=== PATIENT | male | born 1975 | race Caucasian/White ===

== ENCOUNTER → 2019-01-27 | Outpatient (CLI) | payer OTHER ==
[~2019-01-27] MED LIST: GABAPENTIN100 M2 PO; GOOD SENSE400 MG/5 M PO; HEPARIN 2525000 UNIT IV; MOTRIN800 MG PO; ONDANSETRON4 MG/2 M3 IV; OXYCODONE HCL5 MG PO; TOPROL XL50 M1 PO
[2019-01-27 09:36] LABS: HEMATOCRIT 38.9 % (42.0-52.0); HEMOGLOBIN 13.1 g/dl (14.0-18.0); MEAN CELL VOLUME 83.8 fl (80.0-94.0); MEAN CORPUSCULAR HGB 28.2 pg (27.0-31.0); MEAN CORPUSCULAR HGB CONC 33.7 g/dl (33.0-37.0); MEAN PLATELET VOLUME 10.2 fl (9.6-12.3); RED BLOOD COUNT 4.64 10*6/uL (4.50-5.90); RED CELL DISTRI WIDTH 14.3 % (0-14.5); WHITE BLOOD COUNT 5.5 10*3/uL (4.8-10.8)
[2019-01-27 10:40] LABS: CHLORIDE 110 mmol/L (98-107); POTASSIUM 3.8 mmol/L (3.5-5.1); SODIUM 142 mmol/L (136-145)
[2019-01-27 10:55] LABS: ALBUMIN 3.2 gm/dl (3.1-4.5); ALKALINE PHOSPHATASE 112 U/L (45-117); BUN 9 mg/dl (7-24); CHOLESTEROL 153 mg/dL (<200); CREATININE 0.87 mg/dL (0.70-1.30); FREE T4 0.69 ng/dl (0.76-1.46); HDL CHOLESTEROL 27 mg/dl (40-60); LDL CHOLESTEROL 82 mg/dL (9-159); SGOT/AST 17 IU/L (3-35); SGPT/ALT 25 U/L (12-78); TRIGLYCERIDES 218 mg/dl (<150); VLDL CHOLESTEROL 44 mg/dL (6-40)
[2019-01-28 06:12] LABS: HEPATITIS B SURFACE AG Negative (Negative); HEPATITIS C VIRUS ANTIBODY <0.1 s/co (0.0-0.9)
[2019-01-28 08:09] LABS: RHEUMATOID ARTHRITIS FACTOR <10.0 IU/mL (0.0-13.9)
[2019-01-29 00:03] LABS: CCP ANTIBODIES IGG/IGA 4 units (0-19)
== END | disposition home or self-care (01) ==
LOC: LAB 08:51
PROVIDERS: Family Medicine
DX: J90 Pleural effusion, not elsewhere classified (principal); J18.9 Pneumonia, unspecified organism; M25.50 Pain in unspecified joint; R91.1 Solitary pulmonary nodule; R06.02 Shortness of breath

== ENCOUNTER → 2019-02-28 | Outpatient (CLI) | payer OTHER | END | disposition home or self-care (01) | LOC: CT 13:58 | DX: K76.0 Fatty (change of) liver, not elsewhere classified (principal); R91.1 Solitary pulmonary nodule; R59.9 Enlarged lymph nodes, unspecified; N28.1 Cyst of kidney, acquired ==

== ENCOUNTER → 2019-04-25 | Outpatient (CLI) | payer OTHER ==
[2019-04-26 09:07] LABS: PROSTATE SPECIFIC AG FREE 0.15 ng/mL; PROSTATE SPECIFIC AG, SERUM 0.4 ng/mL (0.0-4.0)
== END | disposition home or self-care (01) ==
LOC: LAB 10:19
PROVIDERS: Family Medicine
DX: N41.9 Inflammatory disease of prostate, unspecified (principal)

== ENCOUNTER → 2019-07-27 | Outpatient (CLI) | payer OTHER | END | disposition home or self-care (01) | LOC: RAD 10:44 | DX: M99.53 Intervertebral disc stenosis of neural canal of lumbar region (principal); M25.552 Pain in left hip ==

== ENCOUNTER → 2019-08-01 | Outpatient (CLI) | payer OTHER ==
[2019-08-01 10:18] LABS: MEAN CORPUSCULAR HGB CONC 32.5 g/dl (33.0-37.0); MEAN PLATELET VOLUME 9.3 fl (9.6-12.3); PLATELET COUNT AUTOMATED 462 10*3/uL (130-400); RED CELL DISTRI WIDTH 12.7 % (0-14.5); WHITE BLOOD COUNT 9.7 10*3/uL (4.8-10.8)
[2019-08-01 10:38] LABS: IRON 32 ug/dL (65-175); TOTAL IRON BINDING CAPACITY 174 ug/dl (250-450)
[2019-08-01 12:42] LABS: TOTAL CELLS COUNTED 100 #CELLS
[2019-08-01 12:43] LABS: PLATELET SUFFICIENCY HIGH (NORMAL)
== END | disposition home or self-care (01) ==
LOC: LAB 09:57
PROVIDERS: Family Medicine
DX: E03.9 Hypothyroidism, unspecified (principal); D50.9 Iron deficiency anemia, unspecified

== ENCOUNTER → 2019-08-16 | Outpatient (CLI) | payer OTHER ==
[2019-08-17 07:04] LABS: TOTAL PROTEIN, SERUM 6.6 g/dL (6.0-8.5)
[2019-08-17 08:06] LABS: RHEUMATOID ARTHRITIS FACTOR 11.2 IU/mL (0.0-13.9)
[2019-08-17 16:05] LABS: A/G RATIO 0.8 (0.7-1.7); ALPHA-1-GLOBULIN 0.5 g/dL (0.0-0.4); BETA GLOBULIN 1.4 g/dL (0.7-1.3); GAMMA GLOBULIN 0.8 g/dL (0.4-1.8); GLOBULIN, TOTAL 3.6 g/dL (2.2-3.9); M-SPIKE Comment: g/dL (Not Observed); PE INTERPRETATION Comment: (.)
== END | disposition home or self-care (01) ==
LOC: LAB 10:12
PROVIDERS: Family Medicine
DX: D63.8 Anemia in other chronic diseases classified elsewhere (principal)

== ENCOUNTER → 2019-08-30 | Outpatient (CLI) | payer OTHER | END | disposition home or self-care (01) | LOC: CT 07:37 | DX: R10.2 Pelvic and perineal pain (principal); M54.5 Low back pain ==

== ENCOUNTER 2019-10-18 12:07 | Emergency (ER) | payer OTHER ==
[~2019-10-18] VITALS: Ht 193 cm; Wt 104.3 kg
[2019-10-18] VITALS (10 sets, daily range): BP systolic 112–122; BP diastolic 55–65
[2019-10-18 12:58] LABS: BASO % 0.2 % (0.0-1.0); EOS # 0.5 10*3/uL (0.0-0.4); EOS % 10.4 % (1.0-4.0); HEMATOCRIT 22.4 % (42.0-52.0); LYMPH # 0.2 10*3/uL (1.3-4.4); LYMPH % 3.7 % (27.0-41.0); MEAN CELL VOLUME 79.7 fl (80.0-94.0); MEAN CORPUSCULAR HGB 23.8 pg (27.0-31.0); MEAN CORPUSCULAR HGB CONC 29.9 g/dl (33.0-37.0); MONO # 0.8 10*3/uL (0.1-1.0); MONO % 18.7 % (3.0-9.0); NEUT # 2.9 10*3/uL (2.3-7.9); NEUT % 66.1 % (47.0-73.0); NUCLEATED RED BLOOD CELL 0.1 10*3/uL (0.0-0.0); NUCLEATED RED BLOOD CELL 1.6 % (0.0-0.0); PLATELET COUNT AUTOMATED 272 10*3/uL (130-400); RED BLOOD COUNT 2.81 10*6/uL (4.50-5.90); RED CELL DISTRI WIDTH 16.2 % (0-14.5); WHITE BLOOD COUNT 4.3 10*3/uL (4.8-10.8)
[2019-10-18 13:07] LABS: HEMOGLOBIN 6.7 g/dl (14.0-18.0)
[2019-10-18 13:09] LABS: INTERNATIONAL NORM RATIO 1.1 (2.0-3.5)
[2019-10-18 13:15] LABS: ALBUMIN 2.2 gm/dl (3.1-4.5); ALKALINE PHOSPHATASE 162 U/L (45-117); BUN 11 mg/dl (7-24); CHLORIDE 99 mmol/L (98-107); CREATININE 0.85 mg/dL (0.70-1.30); SGOT/AST 43 IU/L (3-35); SGPT/ALT 26 U/L (12-78); SODIUM 133 mmol/L (136-145); TOTAL PROTEIN 7.2 gm/dL (6.4-8.2)
[2019-10-18 13:18] LABS: POTASSIUM 4.4 mmol/L (3.5-5.1)
[2019-10-18 13:21] LABS: TOTAL CELLS COUNTED 100 #CELLS
[2019-10-18 13:22] LABS: MICROCYTOSIS SLIGHT; PLATELET SUFFICIENCY NORMAL (NORMAL); POLYCHROMASIA SLIGHT; SCHISTOCYTES FEW
== END 2019-10-18 19:36 | disposition home or self-care (01) ==
LOC: ED 12:07
PROVIDERS: Physician Assistant
DX: C34.90 Malignant neoplasm of unspecified part of unspecified bronchus or lung (principal); D63.0 Anemia in neoplastic disease; Z79.899 Other long term (current) drug therapy; Z79.891 Long term (current) use of opiate analgesic

== ENCOUNTER → 2020-01-11 | Outpatient (CLI) | payer OTHER ==
[2020-01-11] VITALS (11 sets, daily range): BP systolic 101–112; BP diastolic 55–74
[~2020-01-11] MED LIST changes: +ALBUTEROL S5 MG/1 ML INH; +BENZONATATE100 M1 PO; +CETIRIZINE10 MG PO; +CIMETIDINE200 MG PO; +DILTIAZEM HYDR120 MG PO; +DULCOLAX STOOL100 M1 PO; +FENTANYL PATCH; +FIBER GUMMIES2 GM PO; +HYDROMORPHONE2 MG PO; +LEVOTHYROXINE75 MCG PO; +MORPHABOND ER15 MG PO; +MULTIVITAMINS1 EAC6 PO; +NEURONTIN300 MG PO; +ONDANSETRON HYDR8 MG PO; +PANTOPRAZOLE SO20 MG PO; +PEPCID20 MG PO; +PREDNISONE10 MG PO; +PROCHLORPERAZIN10 MG PO; +REMERON30 M1 PO; +SLEEP AID25 MG PO; +VITAMIN C 250250 MG PO; +VITAMIN D32000 UNI1 PO; +VITRON-C TABLE1 EACH PO; +ZINC50 M3 PO
[2020-01-11 08:36] LABS: HEMOGLOBIN 6.3 g/dl (14.0-18.0)
[2020-01-11 08:37] LABS: HEMATOCRIT 20.7 % (42.0-52.0)
== END | disposition home or self-care (01) ==
LOC: TRNFUSION 00:08
PROVIDERS: Internal Medicine Hematology & Oncology
DX: D64.9 Anemia, unspecified (principal); F17.200 Nicotine dependence, unspecified, uncomplicated; Z85.118 Personal history of other malignant neoplasm of bronchus and lung

== ENCOUNTER → 2020-02-02 | Outpatient (CLI) | payer OTHER ==
[2020-02-02] VITALS (9 sets, daily range): BP systolic 96–109; BP diastolic 45–72
[2020-02-02 08:54] LABS: HEMATOCRIT 19.1 % (42.0-52.0)
== END | disposition home or self-care (01) ==
LOC: TRNFUSION 00:25
PROVIDERS: Internal Medicine Hematology & Oncology
DX: C34.81 Malignant neoplasm of overlapping sites of right bronchus and lung (principal)

== ENCOUNTER 2020-03-29 21:26 | Inpatient (IN) | payer OTHER ==
[~2020-03-29] VITALS: Ht 193 cm; Wt 68.5 kg
[2020-03-29 21:44] VITALS: BP 93/66
[2020-03-29 22:32] LABS: HEMATOCRIT 29.5 % (42.0-52.0); MEAN CELL VOLUME 101.4 fl (80.0-94.0); MEAN CORPUSCULAR HGB 28.5 pg (27.0-31.0); MEAN CORPUSCULAR HGB CONC 28.1 g/dl (33.0-37.0); MEAN PLATELET VOLUME 9.8 fl (9.6-12.3); PLATELET COUNT AUTOMATED 279 10*3/uL (130-400); RED BLOOD COUNT 2.91 10*6/uL (4.50-5.90); RED CELL DISTRI WIDTH 17.5 % (0-14.5); WHITE BLOOD COUNT 4.2 10*3/uL (4.8-10.8)
[2020-03-29 22:43] LABS: ACT PARTIAL THROMBO TIME 34.3 SECONDS (20.0-32.1); INTERNATIONAL NORM RATIO 1.3 (2.0-3.5)
[2020-03-29 22:47] LABS: ALKALINE PHOSPHATASE 212 U/L (45-117); BUN 18 mg/dl (7-24); CHLORIDE 98 mmol/L (98-107); CREATININE 0.84 mg/dL (0.70-1.30); POTASSIUM 4.3 mmol/L (3.5-5.1); SGOT/AST 17 IU/L (3-35); SGPT/ALT 19 U/L (12-78); SODIUM 132 mmol/L (136-145); TOTAL PROTEIN 6.9 gm/dL (6.4-8.2)
[2020-03-29 23:06] LABS: BASOPHILS 1 % (0-1); PLATELET SUFFICIENCY NORMAL (NORMAL); TOTAL CELLS COUNTED 100 #CELLS
[2020-03-29 23:07] LABS: BURR CELLS FEW
[2020-03-30] VITALS (14 sets, daily range): BP systolic 88–114; BP diastolic 50–81
[2020-03-30 03:46] LABS: ALBUMIN 1.6 gm/dl (3.1-4.5); ALKALINE PHOSPHATASE 165 U/L (45-117); BUN 16 mg/dl (7-24); CHLORIDE 103 mmol/L (98-107); CREATININE 0.63 mg/dL (0.70-1.30); POTASSIUM 4.1 mmol/L (3.5-5.1); SGOT/AST 6 IU/L (3-35); SGPT/ALT 13 U/L (12-78); SODIUM 136 mmol/L (136-145); TOTAL PROTEIN 5.6 gm/dL (6.4-8.2)
[2020-03-30] MEDS ORDERED: LACTULOSE20 GM/30 M PO (03:49)
[2020-03-30] MEDS ORDERED: PREDNISONE5 MG PO (03:52)
[2020-03-30] MEDS ORDERED: FLUONAZOLE100 MG PO (03:53)
[2020-03-30] MEDS ORDERED: ACYCLOVIR400 MG PO (03:53)
[2020-03-30 04:13] LABS: HEMATOCRIT 23.3 % (42.0-52.0); MEAN CELL VOLUME 103.1 fl (80.0-94.0); MEAN CORPUSCULAR HGB 29.2 pg (27.0-31.0); MEAN CORPUSCULAR HGB CONC 28.3 g/dl (33.0-37.0); MEAN PLATELET VOLUME 10.1 fl (9.6-12.3); RED BLOOD COUNT 2.26 10*6/uL (4.50-5.90); RED CELL DISTRI WIDTH 17.6 % (0-14.5); WHITE BLOOD COUNT 2.6 10*3/uL (4.8-10.8)
[2020-03-30 04:33] LABS: PLATELET COUNT AUTOMATED 179 10*3/uL (130-400)
[2020-03-30 04:38] LABS: PLATELET SUFFICIENCY NORMAL (NORMAL); TOTAL CELLS COUNTED 100 #CELLS
[2020-03-30 05:52] LABS: HEMATOCRIT 23.9 % (42.0-52.0); MEAN CELL VOLUME 102.1 fl (80.0-94.0); MEAN CORPUSCULAR HGB 28.6 pg (27.0-31.0); MEAN PLATELET VOLUME 9.7 fl (9.6-12.3); PLATELET COUNT AUTOMATED 173 10*3/uL (130-400); RED BLOOD COUNT 2.34 10*6/uL (4.50-5.90); RED CELL DISTRI WIDTH 17.3 % (0-14.5)
[2020-03-30 06:03] LABS: WHITE BLOOD COUNT 1.9 10*3/uL (4.8-10.8)
[2020-03-30 06:28] LABS: PLATELET SUFFICIENCY NORMAL (NORMAL); POLYCHROMASIA SLIGHT; TOTAL CELLS COUNTED 100 #CELLS
[2020-03-31] VITALS: BP 103/74
[2020-03-31 06:29] LABS: HEMATOCRIT 25.5 % (42.0-52.0); MEAN CORPUSCULAR HGB 29.4 pg (27.0-31.0); MEAN CORPUSCULAR HGB CONC 30.6 g/dl (33.0-37.0); MEAN PLATELET VOLUME 10.4 fl (9.6-12.3); PLATELET COUNT AUTOMATED 141 10*3/uL (130-400); RED BLOOD COUNT 2.65 10*6/uL (4.50-5.90); RED CELL DISTRI WIDTH 18.2 % (0-14.5)
[2020-03-31 06:30] LABS: MEAN CELL VOLUME 96.2 fl (80.0-94.0)
[2020-03-31 07:07] LABS: CHLORIDE 97 mmol/L (98-107); SODIUM 132 mmol/L (136-145)
[2020-03-31 07:23] LABS: CREATININE 0.23 mg/dL (0.70-1.30)
[2020-03-31 07:37] LABS: TOTAL CELLS COUNTED 100 #CELLS
[2020-03-31 07:38] LABS: PLATELET SUFFICIENCY NORMAL (NORMAL); TOXIC GRANULATION SLIGHT
[2020-03-31 08:00] VITALS: BP 98/59
[2020-03-31 08:40] LABS: BUN 4 mg/dl (7-24); POTASSIUM 3.1 mmol/L (3.5-5.1)
[2020-03-31 12:00] VITALS: BP 96/66
[2020-03-31] MEDS ORDERED: LEVAQUIN750 M1 PO (14:26)
== END 2020-03-31 16:06 | disposition home or self-care (01) | DRG 720 ==
LOC: ED 21:26 → EDHOLD 03-30 00:04 → 4E 03-30 10:14
PROVIDERS: Emergency Medicine; Internal Medicine; ADMIT Internal Medicine
PROC: 30233N1 Transfusion of Nonautologous Red Blood Cells into Peripheral Vein, Percutaneous Approach (ICD-10-PCS; principal; 2020-03-30)
DX: A41.9 Sepsis, unspecified organism (principal); D72.819 Decreased white blood cell count, unspecified; D64.81 Anemia due to antineoplastic chemotherapy; R73.9 Hyperglycemia, unspecified; R53.1 Weakness; R74.8 Abnormal levels of other serum enzymes; E43 Unspecified severe protein-calorie malnutrition; J18.9 Pneumonia, unspecified organism; J96.00 Acute respiratory failure, unspecified whether with hypoxia or hypercapnia; C34.91 Malignant neoplasm of unspecified part of right bronchus or lung; I48.0 Paroxysmal atrial fibrillation; C79.51 Secondary malignant neoplasm of bone; T45.1X5A Adverse effect of antineoplastic and immunosuppressive drugs, initial encounter; Y92.89 Other specified places as the place of occurrence of the external cause; Z87.891 Personal history of nicotine dependence; Z79.899 Other long term (current) drug therapy; Z79.52 Long term (current) use of systemic steroids; Z85.05 Personal history of malignant neoplasm of liver; Z68.1 Body mass index [BMI] 19.9 or less, adult

== ENCOUNTER 2020-04-17 23:33 | Inpatient (IN) | payer OTHER ==
[~2020-04-17] VITALS: Ht 182.9 cm; Wt 64.9 kg
[~2020-04-17 23:33] MED LIST changes: +ACYCLOVIR400 MG PO; +FLUONAZOLE100 MG PO; -HYDROMORPHONE2 MG PO; +HYDROMORPHONE4 M1 PO; +LACTULOSE20 GM/30 M PO; +LEVAQUIN750 M1 PO; -PANTOPRAZOLE SO20 MG PO; +PANTOPRAZOLE SO40 MG PO; +PREDNISONE5 MG PO
[2020-04-17 23:44] VITALS: BP 122/82
[2020-04-18] VITALS (8 sets, daily range): BP systolic 89–125; BP diastolic 58–82
[2020-04-18 00:23] LABS: BASO # 0.1 10*3/uL (0.0-0.1); BASO % 0.4 % (0.0-1.0); EOS % 0.2 % (1.0-4.0); LYMPH # 0.6 10*3/uL (1.3-4.4); LYMPH % 3.3 % (27.0-41.0); MEAN CELL VOLUME 102.7 fl (80.0-94.0); MEAN CORPUSCULAR HGB 29.1 pg (27.0-31.0); MEAN CORPUSCULAR HGB CONC 28.3 g/dl (33.0-37.0); MEAN PLATELET VOLUME 10.5 fl (9.6-12.3); MONO # 1.2 10*3/uL (0.1-1.0); MONO % 7.4 % (3.0-9.0); NEUT # 14.4 10*3/uL (2.3-7.9); NEUT % 87.5 % (47.0-73.0); NUCLEATED RED BLOOD CELL 0.1 % (0.0-0.0); PLATELET COUNT AUTOMATED 274 10*3/uL (130-400); RED BLOOD COUNT 2.92 10*6/uL (4.50-5.90); RED CELL DISTRI WIDTH 17.8 % (0-14.5); WHITE BLOOD COUNT 16.5 10*3/uL (4.8-10.8)
[2020-04-18 00:40] LABS: ALBUMIN 1.6 gm/dl (3.1-4.5); ALKALINE PHOSPHATASE 199 U/L (45-117); BUN 16 mg/dl (7-24); CHLORIDE 97 mmol/L (98-107); CREATININE 0.67 mg/dL (0.70-1.30); POTASSIUM 4.2 mmol/L (3.5-5.1); SGOT/AST 19 IU/L (3-35); SGPT/ALT 10 U/L (12-78); SODIUM 130 mmol/L (136-145); TOTAL PROTEIN 5.3 gm/dL (6.4-8.2)
[2020-04-18 00:43] LABS: TROPONIN I < 0.015 ng/ml (<0.045)
[2020-04-18 01:23] LABS: ARTERIAL BLOOD GAS PH 7.208 (7.35-7.45)
[2020-04-18 02:32] LABS: ACT PARTIAL THROMBO TIME 38.2 SECONDS (20.0-32.1); INTERNATIONAL NORM RATIO 1.3 (2.0-3.5)
[2020-04-18 05:20] LABS: ABG BASE EXCESS -2.1 mmol/L (-2.0-2.0)
[2020-04-18 05:22] LABS: ARTERIAL BLOOD GAS PH 7.126 (7.35-7.45)
[2020-04-18 06:14] LABS: HEMATOCRIT 29.8 % (42.0-52.0); MEAN CELL VOLUME 102.1 fl (80.0-94.0); MEAN CORPUSCULAR HGB 29.1 pg (27.0-31.0); MEAN CORPUSCULAR HGB CONC 28.5 g/dl (33.0-37.0); MEAN PLATELET VOLUME 10.4 fl (9.6-12.3); NUCLEATED RED BLOOD CELL 0.2 % (0.0-0.0); PLATELET COUNT AUTOMATED 254 10*3/uL (130-400); RED BLOOD COUNT 2.92 10*6/uL (4.50-5.90); RED CELL DISTRI WIDTH 17.4 % (0-14.5); WHITE BLOOD COUNT 14.9 10*3/uL (4.8-10.8)
[2020-04-18 06:21] LABS: ALBUMIN 1.6 gm/dl (3.1-4.5); BUN 18 mg/dl (7-24); CHLORIDE 97 mmol/L (98-107); CHOLESTEROL 98 mg/dL (<200); CREATININE 0.64 mg/dL (0.70-1.30); POTASSIUM 4.5 mmol/L (3.5-5.1); SGOT/AST 17 IU/L (3-35); SGPT/ALT 11 U/L (12-78); SODIUM 133 mmol/L (136-145); TOTAL PROTEIN 5.3 gm/dL (6.4-8.2); TRIGLYCERIDES 161 mg/dl (<150); VLDL CHOLESTEROL 32 mg/dL (6-40)
[2020-04-18 06:28] LABS: ALKALINE PHOSPHATASE 195 U/L (45-117); FREE T4 0.77 ng/dl (0.76-1.46); HDL CHOLESTEROL 10 mg/dl (40-60); LDL CHOLESTEROL 56 mg/dL (9-159)
[2020-04-18 07:07] LABS: BURR CELLS FEW; PLATELET SUFFICIENCY NORMAL (NORMAL); POLYCHROMASIA SLIGHT; ROULEAUX SLIGHT; TOTAL CELLS COUNTED 100 #CELLS; TOXIC GRANULATION MODERATE
[2020-04-18 07:12] LABS: VITAMIN D, 25-HYDROXY 37.6 ng/mL (30-100)
[2020-04-18] MEDS ORDERED: DOXYCYCLINE HYC50 MG PO (13:17)
[2020-04-18] MEDS ORDERED: Duragesic 75 M75 MCG TD (13:21)
[2020-04-18] MEDS ORDERED: MORPHINE SULFAT15 M7 PO (13:29)
[2020-04-18] MEDS ORDERED: GOOD SENSE ALLE10 M2 PO (13:32)
[2020-04-18] MEDS ORDERED: ALBUTEROL0.63 MG/3 INH (14:54)
[2020-04-19] VITALS (15 sets, daily range): BP systolic 84–108; BP diastolic 51–71
[2020-04-19 07:48] LABS: HEMATOCRIT 24.1 % (42.0-52.0); MEAN CORPUSCULAR HGB 29.1 pg (27.0-31.0); MEAN CORPUSCULAR HGB CONC 29.5 g/dl (33.0-37.0); MEAN PLATELET VOLUME 10.8 fl (9.6-12.3); NUCLEATED RED BLOOD CELL 0.8 % (0.0-0.0); RED BLOOD COUNT 2.44 10*6/uL (4.50-5.90); RED CELL DISTRI WIDTH 17.1 % (0-14.5)
[2020-04-19 07:57] LABS: MEAN CELL VOLUME 98.8 fl (80.0-94.0); PLATELET COUNT AUTOMATED 122 10*3/uL (130-400)
[2020-04-19 08:00] LABS: ALBUMIN 1.3 gm/dl (3.1-4.5); ALKALINE PHOSPHATASE 163 U/L (45-117); BUN 12 mg/dl (7-24); CHLORIDE 100 mmol/L (98-107); CREATININE 0.21 mg/dL (0.70-1.30); SGOT/AST 19 IU/L (3-35); SGPT/ALT 12 U/L (12-78); SODIUM 134 mmol/L (136-145); TOTAL PROTEIN 4.5 gm/dL (6.4-8.2)
[2020-04-19 08:01] LABS: OVALOCYTES FEW; PLATELET SUFFICIENCY LOW (NORMAL); POLYCHROMASIA SLIGHT; ROULEAUX SLIGHT; TOTAL CELLS COUNTED 100 #CELLS
[2020-04-19 08:02] LABS: TOXIC GRANULATION MODERATE
[2020-04-19 08:21] LABS: POTASSIUM 3.4 mmol/L (3.5-5.1)
[2020-04-19 13:56] LABS: MEAN CORPUSCULAR HGB 28.9 pg (27.0-31.0); MEAN CORPUSCULAR HGB CONC 29.2 g/dl (33.0-37.0); MEAN PLATELET VOLUME 10.7 fl (9.6-12.3); PLATELET COUNT AUTOMATED 87 10*3/uL (130-400); RED BLOOD COUNT 1.97 10*6/uL (4.50-5.90); RED CELL DISTRI WIDTH 17.2 % (0-14.5); WHITE BLOOD COUNT 2.5 10*3/uL (4.8-10.8)
[2020-04-19 13:59] LABS: HEMATOCRIT 19.5 % (42.0-52.0)
[2020-04-19 14:14] LABS: PLATELET SUFFICIENCY LOW (NORMAL); TOTAL CELLS COUNTED 100 #CELLS; TOXIC GRANULATION MODERATE
[2020-04-19 20:52] LABS: HEMATOCRIT 23.1 % (42.0-52.0); MEAN CELL VOLUME 97.5 fl (80.0-94.0); MEAN CORPUSCULAR HGB 28.7 pg (27.0-31.0); MEAN CORPUSCULAR HGB CONC 29.4 g/dl (33.0-37.0); MEAN PLATELET VOLUME 10.2 fl (9.6-12.3); RED BLOOD COUNT 2.37 10*6/uL (4.50-5.90); RED CELL DISTRI WIDTH 18.6 % (0-14.5); WHITE BLOOD COUNT 2.6 10*3/uL (4.8-10.8)
[2020-04-19 20:59] LABS: PLATELET COUNT AUTOMATED 89 10*3/uL (130-400)
[2020-04-19 21:06] LABS: ALBUMIN 1.8 gm/dl (3.1-4.5); ALKALINE PHOSPHATASE 125 U/L (45-117); BUN 6 mg/dl (7-24); CHLORIDE 107 mmol/L (98-107); CREATININE 0.23 mg/dL (0.70-1.30); POTASSIUM 3.8 mmol/L (3.5-5.1); SGOT/AST 18 IU/L (3-35); SGPT/ALT 7 U/L (12-78); SODIUM 140 mmol/L (136-145); TOTAL PROTEIN 4.4 gm/dL (6.4-8.2)
[2020-04-19 21:13] LABS: PLATELET SUFFICIENCY LOW (NORMAL); TOTAL CELLS COUNTED 100 #CELLS
[2020-04-19 21:14] LABS: BURR CELLS FEW
[2020-04-20] VITALS: BP 104/70
[2020-04-20 01:00] VITALS: BP 107/69
[2020-04-20 01:40] VITALS: BP 106/69
[2020-04-20 06:06] LABS: HEMATOCRIT 26.8 % (42.0-52.0); MEAN CORPUSCULAR HGB 29.4 pg (27.0-31.0); MEAN PLATELET VOLUME 11.5 fl (9.6-12.3); PLATELET COUNT AUTOMATED 88 10*3/uL (130-400); RED BLOOD COUNT 2.82 10*6/uL (4.50-5.90); RED CELL DISTRI WIDTH 19.3 % (0-14.5); WHITE BLOOD COUNT 2.5 10*3/uL (4.8-10.8)
[2020-04-20 06:10] LABS: BUN 5 mg/dl (7-24); CHLORIDE 106 mmol/L (98-107); POTASSIUM 3.1 mmol/L (3.5-5.1); SODIUM 140 mmol/L (136-145)
[2020-04-20 06:15] LABS: CREATININE < 0.15 mg/dL (0.70-1.30)
[2020-04-20 08:00] VITALS: BP 117/70
[2020-04-20 08:22] LABS: PLATELET SUFFICIENCY LOW (NORMAL); TOTAL CELLS COUNTED 100 #CELLS
[2020-04-20 12:00] VITALS: BP 109/70
== END 2020-04-20 17:18 | disposition hospice, home (50) | DRG 720 ==
LOC: ED 23:33 → ICCU 04-18 02:32 → EDHOLD 04-18 02:32 → ICCU 04-18 02:40
PROVIDERS: Emergency Medicine; Hospitalist; Internal Medicine; Internal Medicine Critical Care Medicine; ADMIT Internal Medicine
PROC: 5A09357 Assistance with Respiratory Ventilation, Less than 24 Consecutive Hours, Continuous Positive Airway Pressure (ICD-10-PCS; principal; 2020-04-18)
PROC: 5A09357 Assistance with Respiratory Ventilation, Less than 24 Consecutive Hours, Continuous Positive Airway Pressure (ICD-10-PCS; 2020-04-19)
PROC: 30233N1 Transfusion of Nonautologous Red Blood Cells into Peripheral Vein, Percutaneous Approach (ICD-10-PCS; 2020-04-19)
DX: A41.9 Sepsis, unspecified organism (principal); R65.20 Severe sepsis without septic shock; C34.90 Malignant neoplasm of unspecified part of unspecified bronchus or lung; E87.2 Acidosis; E87.1 Hypo-osmolality and hyponatremia; G93.41 Metabolic encephalopathy; E72.20 Disorder of urea cycle metabolism, unspecified; E43 Unspecified severe protein-calorie malnutrition; C79.51 Secondary malignant neoplasm of bone; Z20.828 Contact with and (suspected) exposure to other viral communicable diseases; L89.159 Pressure ulcer of sacral region, unspecified stage; E87.8 Other disorders of electrolyte and fluid balance, not elsewhere classified; R73.9 Hyperglycemia, unspecified; I48.20 Chronic atrial fibrillation, unspecified; D61.818 Other pancytopenia; J96.21 Acute and chronic respiratory failure with hypoxia; J96.22 Acute and chronic respiratory failure with hypercapnia; E87.6 Hypokalemia; Z66 Do not resuscitate; Z51.5 Encounter for palliative care; Z87.891 Personal history of nicotine dependence; Z79.899 Other long term (current) drug therapy; Z68.1 Body mass index [BMI] 19.9 or less, adult; J69.0 Pneumonitis due to inhalation of food and vomit